=== PATIENT | male | born 1990 | race American Indian/Alaskan Native ===

== ENCOUNTER 2018-05-10 10:33 | Emergency (ER) | payer BC ==
[~2018-05-10] VITALS: Ht 152.4 cm; Wt 81.6 kg
== END 2018-05-10 14:03 | disposition home or self-care (01) ==
LOC: ER 10:33
DX: B34.9 Viral infection, unspecified (principal); N43.2 Other hydrocele; J11.1 Influenza due to unidentified influenza virus with other respiratory manifestations